=== PATIENT | male | born 1970 | race Caucasian/White ===

== ENCOUNTER 2020-06-19 19:34 | Emergency (ER) | payer OTHER ==
[2020-06-19] MEDS ORDERED: Acetaminophen/HYDROcodone 325-5 MG Tab PO ONE (21:17)
--- NOTE | 2020-06-19 21:23 | EDM.PDOC ---
ED HPI GENERAL MEDICAL PROBLEM - General Chief Complaint: General Stated Complaint: SLIPPED IN TUB AND INJURED LEFT SIDE Time Seen by Provider: 06/19/20 21:07 Source of Information: Reports: Patient History Limitations: Reports: No Limitations - History of Present Illness INITIAL COMMENTS - FREE TEXT/NARRATIVE: Mr. Sutton is a very pleasant 49-year-old gentleman who now presents to the ED after slipping and falling in his tub around 19:00 to 19:30 5, landing on and injuring his lower left ribs. He complains of pain to the area with deep breaths and movement. He denies injury elsewhere. No prior left lower rib injury. The patient states that he did not take any jiex-zth-oduozto or home remedies prior to coming to the ED. Here in the ED, the patient's initial BP is found to be mildly elevated at 151/69, with a slight tachycardia of 101 bpm. He is afebrile, saturating 94% on room air. Prior to tonight, the patient denies having a recent fever, chills, sore throat, ear pain, nasal or sinus congestion, cough, dyspnea, chest pain, palpitations, nausea, vomiting, constipation, diarrhea, abdominal pain, urinary symptoms, recent weight gain or weight loss, recent bloody bowel movements or black bowel movements, recent joint aches, headaches, or rashes. The patient's PCP is at the [facility]. He is in this area for work. Left Thoracic Pain Score (Numeric/FACES): 9 - Related Data Allergies Allergy/AdvReac Type Severity Reaction Status Date / Time No Known Allergies Allergy Verified 06/19/20 20:25 Home Meds: Home Meds Acetaminophen/HYDROcodone [[place] 325-5 MG] 1 - 2 tab PO Q6H PRN #20 tablet 06/19/20 [Rx] Past Medical History Cardiovascular History: Reports: Hypertension Genitourinary History: Reports: Other (See Below) (Overactive bladder) Psychiatric History: Reports: PTSD Endocrine/Metabolic History: Reports: Obesity/BMI 30+ - Past Surgical History HEENT Surgical History: Reports: Adenoidectomy, Tonsillectomy Neurological Surgical History: Reports: Lumbar Spine (L4-L5 discectomy) Musculoskeletal Surgical History: Reports: Shoulder Surgery (bilateral arthroscopic), Other (See Below) (Left biceps tendon rupture repair) Social & Family History - Tobacco Use Tobacco Use Status *Q: Former Tobacco User Years of Tobacco use: 16 Packs/Tins Daily: 1.5 Month/Year Tobacco Last Used: Quit 2005 - Alcohol Use Alcohol Use History: Yes Alcohol Use Frequency: Daily (2 beers/day) - Recreational Drug Use Recreational Drug Use: Yes Drug Use in Last 12 Months: Yes Recreational Drug Type: Reports: Marijuana/Hashish (smokes daily) - Living Situation & Occupation Living situation: Reports: , with Spouse, with Family (2 kids) 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 ED EXAM, GENERAL - Physical Exam Exam: See Below Exam Limited By: No Limitations General Appearance: Alert, WD/WN, Mild Distress (apears uncomfortable) Eye Exam: Bilateral Eye: EOMI, Normal Inspection Ears: Normal External Exam, Hearing Grossly Normal Nose: Normal Inspection Throat/Mouth: Normal Inspection, Normal Lips, Normal Voice, No Airway Compromise Head: Atraumatic, Normocephalic Neck: Normal Inspection, Full Range of Motion Respiratory/Chest: No Respiratory Distress, Lungs Clear, Normal Breath Sounds, No Accessory Muscle Use, Chest Non-Tender, Other (Patient was able to take deep breaths through the pain.). No: Decreased Breath Sounds, Crackles, Rhonchi, Wheezing, Stridor, Pleural Rub, Prolonged Expiration Cardiovascular: Normal Peripheral Pulses, Regular Rate, Rhythm, No Gallop, No JVD, No Murmur, No Rub Peripheral Pulses: 3+: Radial (L), Radial (R) GI/Abdominal: Normal Bowel Sounds, Soft, No Organomegaly, No Distention, No Abnormal Bruit, No Mass, Tender (only to palpation of the LUQ, with no tenderness whatsoever elsewhere), Other (No visible abnormality to the left upper quadrant/lower left ribs, such as swelling, erythema, ecchymosis, or abrasion) Back Exam: Normal Inspection, Full Range of Motion, NT Extremities: Normal Inspection, Normal Range of Motion, Normal Capillary Refill Neurological: Alert, Oriented, Normal Cognition, No Motor/Sensory Deficits Psychiatric: Normal Affect Skin Exam: Warm, Dry, Intact, Normal Color, No Rash Course - Vital Signs Last Recorded V/S: Last Vital Signs Temp 38.0 C 06/19/20 20:20 Pulse 101 H 06/19/20 20:20 Resp 20 06/19/20 20:20 BP 151/69 H 06/19/20 20:20 Pulse Ox 94 L 06/19/20 20:20 - Orders/Labs/Meds Orders: Active Orders 24 hr Category Date Time Status Chest 2V [CR] Stat Exams 06/19/20 21:16 Taken Meds: Medications Discontinued Medications Generic Name Dose Route Start Last Admin Trade Name Brock PRN Reason Stop Dose Admin Hydrocodone Bitart/Acetaminophen 2 tab 06/19/20 21:17 06/19/20 21:23 [place] 325-5 Mg PO 06/19/20 21:18 2 tab ONETIME ONE Administration - Re-Assessments/Exams Free Text/Narrative Re-Assessment/Exam: 06/19/20 21:18 As above, the patient slipped and fell in the tub tonight, injuring his lower left ribs. No visible injury, but he is tender to palpation. No tenderness to his abdomen and less when approaches his left upper quadrant. Clinically, I do not suspect a splenic injury, although it is also possible that it is too early to determine that. [facility], I am recommending a chest x-ray, however, I do not see an indication for a CT of the abdomen and pelvis at this time. In the meantime, the patient will be given 2 tablets of [place]. 06/19/20 22:07 2-view chest radiograph is read by the read as "No acute findings." 06/19/20 22:20 Test results discussed with the patient. I reexamined him, and he has even less abdominal tenderness than previous, yet still has active bowel sounds. I will discharge him home with recommendation that he take [id number] ibuprofen as needed for discomfort, and I will prescribe for him [place] for pain not relieved by ibuprofen. I would like him to return to the emergency department if his condition worsens. The patient requested a note to be off work for 1 week. Departure - Departure Time of Disposition: 22:21 Disposition: Home, Self-Care 01 Condition: Good Clinical Impression: Contusion of rib on left side - Discharge Information *PRESCRIPTION DRUG MONITORING PROGRAM REVIEWED*: Not Applicable *COPY OF PRESCRIPTION DRUG MONITORING REPORT IN PATIENT TOBIAS: Not Applicable Prescriptions: Acetaminophen/HYDROcodone [[place] 325-5 MG] 1 - 2 tab PO Q6H PRN #20 tablet PRN Reason: Pain (Severe 7-10) Instructions: Rib Contusion Referrals: PCP,Not In Area [Primary Care Provider] - Forms: ED Department Discharge, ED Return to Work/School Form Additional Instructions: You were seen in the emergency room after slipping and falling in the tub, injuring your lower left ribs. Work-up in the ER included a chest x-ray, which found no abnormalities. Based on your history, physical exam, and ER x-rays, you have most likely contused (bruised) your lower left ribs. We recommend that you take [id number] ibuprofen, 3 tablets (600 mg) every 8 hours, with food, [id number], as needed for discomfort. You have been given a prescription for the opioid pain reliever [place]. You may take 1 to 2 tablets of [place] up to every 6 hours, as needed for pain not relieved by ibuprofen. If you take [place], do not drive or operate heavy machinery for 12 hours afterwards. [place] may cause constipation, so consider taking a stool softener. As discussed, there is the possibility that you have injured your spleen. If your symptoms worsen, in particular, if you develop worsening abdominal pain, nausea, or vomiting, we recommend that you return to the ER for reevaluation. Sepsis Event Note (ED) - Evaluation Sepsis Screening Result: No Definite Risk - Focused Exam Vital Signs: Vital Signs Temp Pulse Resp BP Pulse Ox 06/19/20 20:20 38.0 C 101 H 20 151/69 H 94 L - My Orders Last 24 Hours: My Active Orders 06/19/20 21:16 Chest 2V [CR] Stat - Assessment/Plan Last 24 Hours: My Active Orders 06/19/20 21:16 Chest 2V [CR] Stat
== END 2020-06-19 22:37 | disposition home or self-care (01) ==
LOC: JD.ED 19:34
DX: S20.212A Contusion of left front wall of thorax, initial encounter (principal); I10 Essential (primary) hypertension; E66.9 Obesity, unspecified; Z87.891 Personal history of nicotine dependence; W01.198A Fall on same level from slipping, tripping and stumbling with subsequent striking against other object, initial encounter
CPT/HCPCS: 71046; 99283; A9270